=== PATIENT | male | born 2000 | race Caucasian/White ===

== ENCOUNTER 2019-11-03 19:21 | Emergency (ER) | payer BC ==
[~2019-11-03] VITALS: Ht 177.8 cm; Wt 113.4 kg
== END 2019-11-03 19:58 | disposition home or self-care (01) ==
LOC: ED 19:21
DX: B34.9 Viral infection, unspecified (principal); F17.200 Nicotine dependence, unspecified, uncomplicated
CPT/HCPCS: 99283

== ENCOUNTER 2020-06-17 12:40 | Emergency (ER) | payer OTHER, BC ==
[~2020-06-17] VITALS: Ht 177.8 cm; Wt 113.4 kg
== END 2020-06-17 14:22 | disposition home or self-care (01) ==
LOC: ED 12:40
DX: H57.89 Other specified disorders of eye and adnexa (principal); Z77.098 Contact with and (suspected) exposure to other hazardous, chiefly nonmedicinal, chemicals; F17.200 Nicotine dependence, unspecified, uncomplicated
CPT/HCPCS: 99283